=== PATIENT | male | born 1990 | race Asian ===

== ENCOUNTER 2021-08-15 06:14 | Emergency (ER) | payer SELFPAY ==
[~2021-08-15] VITALS: Ht 175.3 cm; Wt 90.7 kg
[2021-08-15 06:17] VITALS: BP_SYST 113
[2021-08-15 06:26] VITALS: BP_SYST 113
== END 2021-08-15 06:27 | disposition home or self-care (01) ==
LOC: SED 06:14
DX: S51.812A Laceration without foreign body of left forearm, initial encounter (principal); W45.8XXA Other foreign body or object entering through skin, initial encounter; Y93.89 Activity, other specified; Y92.89 Other specified places as the place of occurrence of the external cause; Y99.8 Other external cause status
CPT/HCPCS: 99283